=== PATIENT | female | born 1945 | race Caucasian/White ===

== ENCOUNTER → 2017-10-24 | Outpatient (CLI) | payer MEDICARE, OTHER ==
[~2017-10-24] MED LIST: BENA10TA2 PO; FLUO20TA25 PO; LEVO25TA4 PO; MELO15TA24 PO; RABE20TA26 PO; SITA100T PO; SPIR100T2 PO
[2017-10-24 13:09] LABS: HEMATOCRIT 43.7 % (34.6-47.8); WHITE BLOOD COUNT 7.6 x10^3/uL (3.4-10)
[2017-10-24 13:37] LABS: ASPARTATE AMINO TRANSFERASE 14 U/L (15-37); BLOOD UREA NITROGEN 16 mg/dL (7-18)
== END | disposition home or self-care (01) ==
LOC: STAR 11:26 → MERGE 11:30
PROVIDERS: ATTEND Orthopaedic Surgery Orthopaedic Surgery of the Spine
DX: Z01.818 Encounter for other preprocedural examination (principal); R94.31 Abnormal electrocardiogram [ECG] [EKG]
CPT/HCPCS: 36415; 71020; 80053; 81003; 85025; 93005

== ENCOUNTER 2017-11-03 06:31 | Inpatient (IN) | payer MEDICARE, OTHER ==
[~2017-11-03] VITALS: Ht 177.8 cm; Wt 133.3 kg
[~2017-11-03 06:31] MED LIST changes: +BACITRACIN 50,000 UNIT ONE; +BUPIVACAINE/PF 0.5% ONE; +EPINEPHRINE 1 MG/ML, 1ML ONE; +THROMBIN 5,000 UNIT VIAL TP ONE; +TRANEXAMIC ACID 100 MG/ML, 10ML ONE; +VANCOMYCIN 1,000 MG ONE
[2017-11-03] MEDS ORDERED: MAGNESIUM SULFATE 1 GM/2 ML ONE (06:43)
[2017-11-03 07:06] VITALS: BP 138/88
[2017-11-03] MEDS ORDERED: LACTATED RINGERS 1,000 ML IV SCH (07:06)
[2017-11-03] MEDS ORDERED: PROPOFOL 10 MG/ML, 20ML ONE ×2 (07:39→08:19)
[2017-11-03] MEDS ORDERED: ROCURONIUM 10 MG/ML,10ML ONE ×2 (07:39→08:19)
[2017-11-03] MEDS ORDERED: GLYCOPYRROLATE 0.2MG/1ML, 5ML ONE ×2 (07:39→08:19)
[2017-11-03] MEDS ORDERED: LIDOCAINE-MPF 2% ,5ML ONE (07:39)
[2017-11-03] MEDS ORDERED: DEXAMETHASONE 4 MG/ML, 1ML ONE ×2 (07:39→08:19)
[2017-11-03] MEDS ORDERED: FENTANYL PF 100 MCG/2ML ONE ×5 (07:39→12:10)
[2017-11-03] MEDS ORDERED: MIDAZOLAM 1 MG/ML, 2ML ONE ×2 (07:39→08:19)
[2017-11-03] MEDS ORDERED: CEFAZOLIN 1,000 MG ONE (08:19)
[2017-11-03] MEDS ORDERED: FENTANYL PF 250 MCG/5ML ONE (08:19)
[2017-11-03] MEDS ORDERED: LABETALOL 5MG/ML, 20ML ONE (08:19)
[2017-11-03] MEDS ORDERED: BUPIVACAINE LIPOSOME/PF INFIL ONE (08:33)
[2017-11-03] MEDS ORDERED: DIAZEPAM 5 MG/ML, 2ML IVPush PRN (10:00)
[2017-11-03] MEDS ORDERED: MEPERIDINE/PF 25MG/0.5ML IVPush PRN (10:00)
[2017-11-03] MEDS ORDERED: ALBUTEROL SULFATE 2.5 MG/3 ML NPPB PRN (10:00)
[2017-11-03] MEDS ORDERED: OXYcodone 5 MG/5 ML ORAL.SOL UDC PO PRN (10:00)
[2017-11-03] MEDS ORDERED: EPHEDRINE 50 MG/ML, 1ML IVPush PRN (10:00)
[2017-11-03] MEDS ORDERED: ONDANSETRON 2MG/ML, 2ML IVPush PRN ×2 (10:00→12:00)
[2017-11-03] MEDS ORDERED: MIDAZOLAM 1 MG/ML, 2ML IV PRN (10:00)
[2017-11-03] MEDS ORDERED: LABETALOL 5MG/ML, 20ML IV PRN (10:00)
[2017-11-03] MEDS ORDERED: HYDROmorphone 1 MG/ML, 1ML IV PRN (10:00)
[2017-11-03] MEDS ORDERED: morphine SULFATE 10 MG/ML, 1ML IV PRN (10:00)
[2017-11-03] MEDS ORDERED: METOCLOPRAMIDE 5 MG/ML, 2ML IV PRN (10:00)
[2017-11-03] MEDS ORDERED: HYDROcodone/APAP 7.5-325MG/15ML UDC PO PRN (10:00)
[2017-11-03] MEDS ORDERED: FENTANYL PF 100 MCG/2ML IV PRN (10:00)
[2017-11-03] MEDS ORDERED: ACETAMINOPHEN 325 MG TABLET PO PRN (10:00)
[2017-11-03] MEDS ORDERED: OXYcodone 5 MG/5 ML ORAL.SOL UDC ONE (11:43)
[2017-11-03] MEDS ORDERED: ACETAMINOPHEN 325 MG TABLET ONE (11:43)
[2017-11-03] MEDS ORDERED: BISACODYL 10 MG SUPP PR PRN (12:00)
[2017-11-03] MEDS ORDERED: ZOLPIDEM 5MG TABLET PO PRN (12:00)
[2017-11-03] MEDS ORDERED: PHARMACY MAY ADJ FOR RENAL FX MC PRN (12:00)
[2017-11-03] MEDS ORDERED: DIPHENHYDRAMINE 50 MG CAPSULE PO PRN (12:00)
[2017-11-03] MEDS ORDERED: DIAZEPAM 2 MG TABLET PO PRN (12:00)
[2017-11-03] MEDS ORDERED: MAGNESIUM HYDROXIDE 8%, 30ML UDC PO PRN (12:00)
[2017-11-03] MEDS ORDERED: SENNA/DOCUSATE TABLET PO PRN (12:00)
[2017-11-03] MEDS ORDERED: HYDROmorphone 2 MG/ML, 1ML IVPush PRN (12:00)
[2017-11-03] MEDS ORDERED: DIPHENHYDRAMINE 50 MG/ML, 1ML IVPush PRN (12:00)
[2017-11-03 12:55] VITALS: BP 142/68
[2017-11-03 19:23] VITALS: BP 144/60
[2017-11-03] MEDS: OXYcodone/APAP 5/325MG TABLET HOMEMEDPO PRN (22:07)
[2017-11-03 23:53] VITALS: BP 107/57
[2017-11-04 03:43] VITALS: BP 136/56
[2017-11-04 11:24] VITALS: BP 139/61
[2017-11-04] MEDS: OXYcodone/APAP 5/325MG TABLET HOMEMEDPO PRN (11:24)
== END 2017-11-04 14:00 | disposition home or self-care (01) | DRG 460 ==
LOC: ORIP 06:31 → 4NOR 12:48
PROVIDERS: ADMIT Orthopaedic Surgery Orthopaedic Surgery of the Spine; ATTEND Orthopaedic Surgery Orthopaedic Surgery of the Spine
PROC: 0SB20ZZ Excision of Lumbar Vertebral Disc, Open Approach (ICD-10-PCS; 2017-11-03)
PROC: 4A11X4G Monitoring of Peripheral Nervous Electrical Activity, Intraoperative, External Approach (ICD-10-PCS; 2017-11-03)
PROC: 0SG00AJ Fusion of Lumbar Vertebral Joint with Interbody Fusion Device, Posterior Approach, Anterior Column, Open Approach (ICD-10-PCS; principal; 2017-11-03 08:30)
DX: M48.061 Spinal stenosis, lumbar region without neurogenic claudication (principal); E11.9 Type 2 diabetes mellitus without complications; M84.48XA Pathological fracture, other site, initial encounter for fracture; Z68.41 Body mass index [BMI] 40.0-44.9, adult; Z96.653 Presence of artificial knee joint, bilateral; M43.16 Spondylolisthesis, lumbar region; M51.16 Intervertebral disc disorders with radiculopathy, lumbar region; E66.9 Obesity, unspecified; M19.90 Unspecified osteoarthritis, unspecified site; Z88.0 Allergy status to penicillin; Z88.1 Allergy status to other antibiotic agents; Z88.8 Allergy status to other drugs, medicaments and biological substances
CPT/HCPCS: 72100; 82962; C1713; C1767; C9290; J0171; J0690; J1100; J2250; J2704; J3010; J3360; J3370; J3475; J3490; C1760; C1762; J7120